=== PATIENT | female | born 1955 | race Caucasian/White ===

== ENCOUNTER 2020-01-25 16:39 | Outpatient (CLI) | payer BC, SELFPAY ==
--- NOTE | ~2020-01-25 | MM_ITS ---
EXAMINATION: MM screening jar[facility] BI w kendra HISTORY: Screening mammogram TECHNIQUE: Craniocaudal and mediolateral oblique 3-D tomosynthesis images were obtained and synthetic 2-D images were generated. CAD analysis was submitted and interpreted. COMPARISON: Comparison to multiple prior studies sequentially, with oldest reviewed study dated 08/30. BREAST PARENCHYMAL COMPOSITION: The breasts are heterogeneously dense, which may obscure small masses . FINDINGS: Nuclear asymmetry superiorly in the right breast on MLO view. The left breast is stable wit hout evidence for malignancy. IMPRESSION: 1. New focal right breast asymmetry. 2. Additional mammographic views and possible breast ultrasound are recommended. BI-RADS Category 0: Incomplete: Needs additional imaging evaluation. Reviewed, dictated and finalized at location A. IMPRESSION: 1. New focal right breast asymmetry. 2. Additional mammographic views and possible breast ultrasound are recommended . BI-RADS Category 0: Incomplete: Needs additional imaging evaluation.
== END 2020-01-25 16:40 | disposition home or self-care (01) ==
PROVIDERS: PCP Family Medicine
DX: Z12.31 Encounter for screening mammogram for malignant neoplasm of breast (principal); R92.8 Other abnormal and inconclusive findings on diagnostic imaging of breast
CPT/HCPCS: 77063; 77067

== ENCOUNTER → 2020-03-13 07:55 | Outpatient (CLI) | payer BC, SELFPAY ==
--- NOTE | ~2020-03-13 | MM_ITS ---
EXAMINATION: MM diagnostic jarred RT w kendra HISTORY: New focal right mammographic asymmetry reported on 01/25/2020 bilateral digital screening mamm ogram examination TECHNIQUE: Additional 3-D tomosynthesis images of the right breast were performed and synthetic 2-D i mages were generated. CAD analysis was submitted and interpreted. COMPARISON: 02/04/2020 bilateral digital screening mammogram FINDINGS: No reproducible mass or architectural distortion or any calcification, skin thickening or r etraction is evident. The area of asymmetry reported in the upper right breast on screening MLO view of 02/04/2020 is not confirmed on these supplemental views. IMPRESSION: 1. No mammographic evidence of malignancy 2. Routine annual mammographic screening follow-up is recommended. BI-RADS Category 1: Negative Reviewed, dictated and finalized at location A.
== END ==
PROVIDERS: PCP Family Medicine; Visit Provider Obstetrics & Gynecology
DX: R92.8 Other abnormal and inconclusive findings on diagnostic imaging of breast (principal)
CPT/HCPCS: 77061; 77065; G0279

== ENCOUNTER 2020-08-29 07:58 | Outpatient (CLI) | payer BC, SELFPAY ==
[2020-08-29 08:22] LABS: Hematocrit 38.1 % (37.0-47.0); Hemoglobin 12.6 g/dL (12.0-15.0); Mean Corpuscular HGB Conc 33.1 g/dl (32-36); Mean Corpuscular Hemoglobin 29.2 pg (26-34); Mean Corpuscular Volume 88.4 fl (80-100); Mean Platelet Volume 9.5 fl (7.4-10.4); Platelet Count Result 301 k/mm3 (150-375); Red Blood Count 4.31 M/mm3 (4.2-5.4); Red Cell Distribution Width 13.4 % (11.5-14.5); White Blood Count 6.7 K/mm3 (4.5-10.0)
[2020-08-29 08:47] LABS: Alanine Aminotransferase 19 U/L (4-35); Albumin Level 4.2 g/dL (3.5-5.1); Alkaline Phosphatase 51 U/L (38-126); Anion Gap 4 mmol/L (8-16); Aspartate Amino Transferase 31 U/L (14-36); Bilirubin,Total 0.4 mg/dL (0.2-1.3); Blood Urea Nitrogen 20 mg/dL (7-17); Calcium 8.9 mg/dL (8.4-10.2); Carbon Dioxide 32 mmol/L (22-30); Chloride 99 mmol/L (98-107); Cholesterol 226 mg/dL (0-200); Estimated Glomerular Filt Rate > 60; Glucose 94 mg/dL (65-105); LDL Cholesterol Direct 60 mg/dL; Potassium 3.9 mmol/L (3.4-5.0); Sodium 135 mmol/L (137-145); Triglycerides 60 mg/dL (<150)
[2020-08-29 08:53] LABS: HDL Direct 141 mg/dL
[2020-09-07 14:31] LABS: SARS-CoV-2 IgG POSITIVE
== END 2020-08-29 07:59 | disposition home or self-care (01) ==
PROVIDERS: PCP Family Medicine; Visit Provider Physician Assistant Medical
DX: E78.2 Mixed hyperlipidemia (principal); N28.9 Disorder of kidney and ureter, unspecified; Z13.220 Encounter for screening for lipoid disorders
CPT/HCPCS: 36415; 80053; 80061; 85027; 86769

== ENCOUNTER → 2021-04-10 12:38 | Outpatient (CLI) | payer BC, SELFPAY ==
--- NOTE | ~2021-04-10 | MM_ITS ---
EXAMINATION: MM screening [facility] BI w kendra HISTORY: Screening mammogram TECHNIQUE: Craniocaudal and mediolateral oblique 3-D tomosynthesis images were obtained and synthetic 2-D images were generated. CAD analysis was submitted and interpreted. COMPARISON: 03/13/2020, 02/04/2020, 06/25/2018 BREAST PARENCHYMAL COMPOSITION: The breasts are heterogeneously dense, which may obscure small masses . FINDINGS: There is no evidence of suspicious mass, calcification, or architectural distortion to sugg est malignancy in either breast. There has been no suspicious interval change. IMPRESSION: 1. No mammographic evidence of malignancy. 2. Recommend routine screening mammography in one year. BI-RADS Category 1: Negative Reviewed, dictated and finalized at location A.
== END ==
PROVIDERS: Visit Provider Obstetrics & Gynecology
DX: Z12.31 Encounter for screening mammogram for malignant neoplasm of breast (principal)
CPT/HCPCS: 77063; 77067

== ENCOUNTER 2021-09-27 11:03 | Outpatient (CLI) | payer MEDICARE, OTHER, SELFPAY ==
[2021-09-27 11:56] LABS: Hematocrit 41.1 % (37.0-47.0); Hemoglobin 13.4 g/dL (12.0-15.0); Mean Corpuscular HGB Conc 32.6 g/dl (32-36); Mean Corpuscular Hemoglobin 29.7 pg (26-34); Mean Corpuscular Volume 91.1 fl (80-100); Mean Platelet Volume 9.5 fl (7.4-10.4); Platelet Count Result 315 k/mm3 (150-375); Red Blood Count 4.51 M/mm3 (4.2-5.4); Red Cell Distribution Width 13.4 % (11.5-14.5); White Blood Count 6.6 K/mm3 (4.5-10.0)
[2021-09-27 12:17] LABS: LDL Cholesterol Direct 51 mg/dL
[2021-09-27 12:21] LABS: Alanine Aminotransferase 31 U/L (4-35); Albumin Level 4.8 g/dL (3.5-5.1); Alkaline Phosphatase 54 U/L (38-126); Anion Gap 6 mmol/L (8-16); Aspartate Amino Transferase 41 U/L (14-36); Bilirubin,Total 0.4 mg/dL (0.2-1.3); Blood Urea Nitrogen 14 mg/dL (7-17); Calcium 9.8 mg/dL (8.4-10.2); Carbon Dioxide 30 mmol/L (22-30); Chloride 101 mmol/L (98-107); Cholesterol 228 mg/dL (0-200); Estimated Glomerular Filt Rate > 60; Glucose 99 mg/dL (65-110); Sodium 137 mmol/L (137-145); Triglycerides 60 mg/dL (<150)
[2021-09-27 12:45] LABS: Vitamin D 25 Hydroxy 87.8 ng/mL
[2021-09-27 13:40] LABS: HDL Direct 153 mg/dL
== END 2021-09-27 11:04 | disposition home or self-care (01) ==
LOC: ANHLAB 11:11
PROVIDERS: PCP Family Medicine; Visit Provider Nurse Practitioner Family
DX: E78.5 Hyperlipidemia, unspecified (principal); R10.9 Unspecified abdominal pain; Z13.29 Encounter for screening for other suspected endocrine disorder; E55.9 Vitamin D deficiency, unspecified
CPT/HCPCS: 36415; 80053; 80061; 82306; 84443; 85027

== ENCOUNTER → 2022-06-28 12:31 | Outpatient (CLI) | payer MEDICARE, OTHER, SELFPAY ==
--- NOTE | ~2022-06-28 | MM_ITS ---
EXAMINATION: MM screening jarred BI w kendra HISTORY: Screening mammogram TECHNIQUE: Craniocaudal and mediolateral oblique 3-D tomosynthesis images were obtained and synthetic 2-D images were generated. CAD analysis was submitted and interpreted. COMPARISON: 04/06/2021 bilateral screening mammogram 03/13/2020 diagnostic right mammogram 01/25/2020, 06/25/2018 bilateral screening mammogram examinations... BREAST PARENCHYMAL COMPOSITION: The breasts are heterogeneously dense, which may obscure small masses . FINDINGS: There is no evidence of suspicious mass, calcification, or architectural distortion to sugg est malignancy in either breast. There has been no suspicious interval change. IMPRESSION: 1. No mammographic evidence of malignancy. 2. Recommend routine screening mammography in one year. BI-RADS Category 1: Negative Reviewed, dictated and finalized at location A. TER SOUSAPHONES
== END ==
PROVIDERS: Visit Provider Obstetrics & Gynecology
DX: Z12.31 Encounter for screening mammogram for malignant neoplasm of breast (principal)
CPT/HCPCS: 77063; 77067

== ENCOUNTER 2022-09-03 08:02 | Emergency (ER) | payer MEDICARE, OTHER, SELFPAY ==
--- NOTE | 2022-09-03 08:09 | ED.WOUNDLAC ---
HPI - Wound/Laceration General Chief Complaint: Wound/Laceration Stated Complaint: laceratiion thumb Time Seen by Provider: 09/03/22 08:08 Source: patient Mode of arrival: ambulatory Limitations: no limitations History of Present Illness HPI narrative: Bita is a 67-year-old female patient presenting to clinic today with complaints of a laceration to her right thumb. She reports she cut it on a piece of glass this morning when washing the dishes at 6:00 a.m.. Tetanus is not up-to-date and patient declines to get a tetanus today. Bleeding is controlled Related Data Allergies Allergy/AdvReac Type Severity Reaction Status Date / Time No Known Allergies Allergy Mild Verified 09/03/22 08:08 Review of Systems Review of Systems: Pertinent positives per HPI. Patient denies any fever, chills, rash, headache, visual changes, dizziness, cough, runny nose, sore throat, shortness of breath, chest pain, palpitations, nausea, vomiting, diarrhea, constipation, abdominal pain, or any urinary issues. 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 There is no relevant family history pertinent to the patient complaint. Exam Narrative: General: Well-developed, well nourished, in no apparent distress Head: Normocephalic, atraumatic. Cardio: Regular rate and rhythm, s1 and s2 normal, no murmur appreciated. Resp: Clear to auscultation bilaterally, no rhonchi, rales, wheezing or rubs. Integumentary: [place], warm, and dry, superficial bleeding skin avulsion to the base of the right dorsal thumb. Area measuring 1.5 x 1 cm Course Course Emergency Course: Portions of this record may have been created with voice recognition software. Level of Care: Express Care Visit Vital Signs Vital signs: Vital Signs Temperature 36.8 C 09/03/22 08:21 Pulse Rate 82 09/03/22 08:21 Respiratory Rate 16 09/03/22 08:21 Blood Pressure 139/77 09/03/22 08:21 Pulse Oximetry 100 09/03/22 08:21 Oxygen Delivery Room Air 09/03/22 08:21 Temperature 36.8 C 09/03/22 08:21 Pulse Rate 82 09/03/22 08:21 Respiratory Rate 16 09/03/22 08:21 Blood Pressure 139/77 09/03/22 08:21 Pulse Oximetry 100 09/03/22 08:21 Oxygen Delivery Room Air 09/03/22 08:21 Vital signs reviewed Procedures Laceration Laceration 1: Date: 09/03/22 Site: hand (Right thumb) Side (If applicable): right Size (cm): 1.5 Description: irregular (Skin avulsion) Depth: simple, single layer Local Anesthetic: lidocaine 1% Amount of anesthesia used (mL): 1 Pre-repair: wound explored and irrigated ====== Skin Level ====== ====== Subcutaneous Layer ====== ====== Muscle Layer ====== ====== Tendon Layer ====== Dressing: Verbal consent obtained for laceration repair. Risk and benefits explained and patient voiced understanding. Area was cleansed with wound cleanser an
[2022-09-03 08:21] VITALS: BP 139/77; PULSE 82; RESP 16; TEMP 36.8; O2SAT 100
== END 2022-09-03 08:40 | disposition home or self-care (01) ==
PROVIDERS: Emergency Provider Nurse Practitioner Family; PCP Family Medicine
DX: S61.001A Unspecified open wound of right thumb without damage to nail, initial encounter (principal); W25.XXXA Contact with sharp glass, initial encounter; Y93.G1 Activity, food preparation and clean up; E78.2 Mixed hyperlipidemia
CPT/HCPCS: 99212; G0463

== ENCOUNTER 2022-09-27 08:49 | Outpatient (CLI) | payer MEDICARE, OTHER, SELFPAY ==
--- NOTE | 2022-09-27 09:18 | ECG_ITS ---
Measurements Intervals [place] Rate: 57 P: 30 TN: 153 QRS: 2 QRSD: 85 T: 49 QT: 442 QTc: 431 Interpretive Statements SINUS BRADYCARDIA EARLY R-WAVE TRANSITION BORDERLINE ECG NO PREVIOUS ECG AVAILABLE FOR COMPARISON Electronically Signed On 09-27-2022 13:13:06 [employer]S OPERATOR [employer] by Rigo Anna M.D.
[2022-09-27 09:33] LABS: Hemoglobin 13.5 g/dL (12.0-15.0); Mean Corpuscular HGB Conc 32.9 g/dl (32-36); Mean Corpuscular Hemoglobin 29.5 pg (26-34); Mean Corpuscular Volume 89.5 fl (80-100); Mean Platelet Volume 9.7 fl (7.4-10.4); Platelet Count Result 322 k/mm3 (150-375); Red Blood Count 4.58 M/mm3 (4.2-5.4); Red Cell Distribution Width 13.1 % (11.5-14.5); White Blood Count 5.7 K/mm3 (4.5-10.0)
[2022-09-27 09:50] LABS: Alanine Aminotransferase 23 U/L (6-35); Albumin Level 4.8 g/dL (3.5-5.1); Alkaline Phosphatase 54 U/L (38-126); Anion Gap 3 mmol/L (8-16); Aspartate Amino Transferase 34 U/L (14-36); Bilirubin,Total 0.6 mg/dL (0.2-1.3); Blood Urea Nitrogen 15 mg/dL (7-17); Calcium 9.3 mg/dL (8.4-10.2); Carbon Dioxide 34 mmol/L (22-30); Chloride 97 mmol/L (98-107); Cholesterol 203 mg/dL (0-200); Estimated Glomerular Filt Rate > 60; Glucose 97 mg/dL (65-110); Potassium 4.1 mmol/L (3.4-5.0); Sodium 134 mmol/L (137-145); Triglycerides 62 mg/dL (<150)
[2022-09-27 09:57] LABS: LDL Cholesterol Direct 42 mg/dL
[2022-09-27 10:11] LABS: HDL Direct 135 mg/dL
== END 2022-09-27 08:50 | disposition home or self-care (01) ==
LOC: ANHLAB 08:51
PROVIDERS: PCP Family Medicine; Visit Provider Nurse Practitioner Family
DX: E78.5 Hyperlipidemia, unspecified (principal); E78.2 Mixed hyperlipidemia; R07.9 Chest pain, unspecified; R00.1 Bradycardia, unspecified
CPT/HCPCS: 36415; 80053; 80061; 84443; 85027; 93005

== ENCOUNTER 2023-03-10 15:11 | Emergency (ER) | payer MEDICARE, OTHER, SELFPAY ==
[2023-03-10 15:21] VITALS: BP 147/71; PULSE 70; RESP 16; TEMP 36.4; O2SAT 100
--- NOTE | 2023-03-10 15:44 | ED.EXTPRO ---
HPI - Extremity Problem General Chief complaint: Extremity Problem,Nontraumatic Stated complaint: Rt Leg Swelling Time Seen by Provider: 03/10/23 15:44 Source: patient, RN notes reviewed and old records reviewed Mode of arrival: ambulatory Limitations: no limitations History of Present Illness HPI Narrative: 67-year-old female presents to the [facility] with right lower leg pain and swelling that has had been twice. Patient states that occurred while sitting at her desk once last week and resolved the next day. Patient states over the with past week and it occurred again and everything but the tenderness to the lower Achilles tendon has subsided. Patient is tender without ecchymosis or erythema to the insertion site of the Achilles tendon right ankle Does have full range of motion Patient reports that wearing heels makes it feel better. Sensation intact in all 5 toes. Positive pedal pulse. Capillary refill under 2 seconds Denies any injury Related Data Allergies Allergy/AdvReac Type Severity Reaction Status Date / Time No Known Allergies Allergy Mild Verified 11/11/22 15:17 Review of Systems Review of Systems: All systems reviewed & are unremarkable except as noted in HPI and below Constitutional: Constitutional: Reports no additional constitutional complaints Eyes: Eyes: Reports no additional eye complaints ENT: Reports system reviewed and no additional complaints, except as documented Cardiovascular: Cardiovascular: Reports no additional cardiovascular complaints, Denies chest pain and Denies dyspnea Respiratory: Respiratory: Reports no additional respiratory complaints, Denies chest congestion, Denies cough and Denies dyspnea Gastrointestinal: Gastrointestinal: Reports no additional gastrointestinal complaints, Denies abdominal pain, Denies nausea and Denies vomiting Musculoskeletal: Musculoskeletal: Reports as per HPI Integumentary/Breasts: Skin/Breast: Reports system reviewed and no additional complaints, except as docu Neurologic: Reports system reviewed and no additional complaints, except as documented Psychiatric: Psychiatric: Reports no additional psychiatric complaints Allergic/Immunologic: Allergic/Immunologic: Reports no additional allergic/immunologic complaints PMFSH Past Medical History Medical History BMI 21.0-21.9, adult Chest pain Elevated liver function tests Head injury due to trauma Hyperlipidemia Low kidney function Mixed hyperlipidemia Family History Family History Mother Hypertension Patient's mother is in good health Father Family history of malignant neoplasm Family history of blood dyscrasia Patient's father is Sibling Patient's sister is in good health Patient's brother is in good health Other Diabetes mellitus Social History Social History Smoking status: Never smoker Second hand tobacco smoke exposure: No Alcohol intake: current Substance use: never Substance use type: does not use Lack of Transportation: YES Lack of Food: Never True Current Housing: I Have Housing Concerned About Future Housing: No Difficulty Paying Gas/Electric Bills: No Difficulty Paying for Meds: No Currently Unemployed: No Education: High School Diploma/GED Difficulty w/ Childcare or Family Care: No Living arrangements: with family Occupation/Education: occupation 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 There is no relevant family history pertinent to the patient complaint. Exam Const: General: cooperative, healthy appearing, comfortable, no acute distress,
== END 2023-03-10 16:08 | disposition home or self-care (01) ==
PROVIDERS: Emergency Provider Nurse Practitioner; PCP Family Medicine
DX: M76.61 Achilles tendinitis, right leg (principal); E78.2 Mixed hyperlipidemia
CPT/HCPCS: 99213; G0463

== ENCOUNTER 2023-10-28 08:00 | Outpatient (CLI) | payer MEDICARE, OTHER, SELFPAY ==
[2023-10-28 08:42] LABS: Basophils Absolute Auto 0.1 K/mm3 (0.0-0.1); Basophils Percent Auto 1.1 % (0.2-1.2); Eosinophils Absolute Auto 0.5 K/mm3 (0-0.3); Eosinophils Percent Auto 7.1 % (0-4.4); Hematocrit 39.1 % (37.0-47.0); Hemoglobin 12.7 g/dL (12.0-15.0); Immature Granulocyte Absolute 0.01 K/mm3 (0.00-0.031); Immature Granulocyte Percent A 0.2 % (0-0.5); Lymphocytes Percent Auto 39.4 % (18.3-44.2); Mean Corpuscular HGB Conc 32.5 g/dl (32-36); Mean Corpuscular Hemoglobin 29.3 pg (26-34); Mean Corpuscular Volume 90.1 fl (80-100); Monocytes Absolute Auto 0.7 K/mm3 (0.1-0.6); Monocytes Percent Auto 10.2 % (2.6-8.5); Neutrophils Absolute Auto 2.8 K/mm3 (1.3-6.7); Platelet Count Result 307 k/mm3 (150-375); Red Blood Count 4.34 M/mm3 (4.2-5.4); Red Cell Distribution Width 13.6 % (11.5-14.5); White Blood Count 6.6 K/mm3 (4.5-10.0)
[2023-10-28 09:06] LABS: Alanine Aminotransferase 23 U/L (6-35); Albumin Level 4.4 g/dL (3.5-5.1); Alkaline Phosphatase 53 U/L (38-126); Anion Gap 2 mmol/L (8-16); Aspartate Amino Transferase 32 U/L (14-36); Bilirubin,Total 0.6 mg/dL (0.2-1.3); Blood Urea Nitrogen 21 mg/dL (7-17); Calcium 9.2 mg/dL (8.4-10.2); Carbon Dioxide 31 mmol/L (22-30); Chloride 100 mmol/L (98-107); Cholesterol 197 mg/dL (0-200); Estimated Glomerular Filt Rate > 60; Glucose 88 mg/dL (65-110); Potassium 3.6 mmol/L (3.4-5.0); Sodium 133 mmol/L (137-145); Triglycerides 50 mg/dL (<150)
[2023-10-28 09:14] LABS: LDL Cholesterol Direct 60 mg/dL
[2023-10-28 09:26] LABS: HDL Direct 144 mg/dL
== END 2023-10-28 08:01 | disposition home or self-care (01) ==
PROVIDERS: PCP Family Medicine; Visit Provider Physician Assistant Medical
DX: E78.5 Hyperlipidemia, unspecified (principal); N28.9 Disorder of kidney and ureter, unspecified; R94.5 Abnormal results of liver function studies
CPT/HCPCS: 36415; 80053; 80061; 85025

== ENCOUNTER 2024-03-05 09:27 | Emergency (ER) | payer MEDICARE, OTHER, SELFPAY ==
[2024-03-05] VITALS (16 sets, daily range): BP systolic 132–163; BP diastolic 75–89; PULSE 63–89; RESP 12–18; TEMP 36.6; O2SAT 98–100
--- NOTE | ~2024-03-05 | XR_ITS ---
Clinical Indication: Hypertension PA and lateral views of the chest: Comparison: 03/13/2010 Findings: The lungs are clear, without evidence of focal consolidation or pleural effusion. Cardiome diastinal silhouette is within normal limits. Bones and soft tissues are unremarkable. Impression: Normal chest. Reviewed, dictated and finalized at location . Impression: Normal chest.
--- NOTE | 2024-03-05 09:35 | ECG_ITS ---
Test Date: 2024-03-05 13:15:00 Measurements Intervals [place] Rate: 67 P: 15 NH: 140 QRS: -12 QRSD: 86 T: 35 QT: 415 QTc: 438 Interpretive Statements SINUS RHYTHM POSSIBLE RIGHT VENTRICULAR CONDUCTION DELAY BASELINE ARTIFACT- II, III, AVR, AVF BORDERLINE ECG No previous ECG available for comparison Electronically Signed On 03-05-2024 13:17:58 CDT by Holger Neumann D.O.
[2024-03-05 10:17] LABS: Basophils Absolute Auto 0.1 K/mm3 (0.0-0.1); Basophils Percent Auto 0.7 % (0.2-1.2); Eosinophils Absolute Auto 0.1 K/mm3 (0-0.3); Eosinophils Percent Auto 1.2 % (0-4.4); Hematocrit 41.9 % (37.0-47.0); Hemoglobin 13.7 g/dL (12.0-15.0); Immature Granulocyte Absolute 0.02 K/mm3 (0.00-0.031); Immature Granulocyte Percent A 0.3 % (0-0.5); Lymphocytes Absolute Auto 1.94 K/mm3 (0.9-3.2); Lymphocytes Percent Auto 28.4 % (18.3-44.2); Mean Corpuscular HGB Conc 32.7 g/dl (32-36); Mean Corpuscular Volume 88.6 fl (80-100); Mean Platelet Volume 9.6 fl (7.4-10.4); Monocytes Absolute Auto 0.6 K/mm3 (0.1-0.6); Monocytes Percent Auto 8.9 % (2.6-8.5); Neutrophils Absolute Auto 4.1 K/mm3 (1.3-6.7); Neutrophils Percent Auto 60.5 % (45.5-73.1); Platelet Count Result 336 k/mm3 (150-375); Red Blood Count 4.73 M/mm3 (4.2-5.4); Red Cell Distribution Width 13.3 % (11.5-14.5); White Blood Count 6.8 K/mm3 (4.5-10.0)
[2024-03-05 10:28] LABS: Alanine Aminotransferase 22 U/L (6-35); Albumin Level 4.8 g/dL (3.5-5.1); Alkaline Phosphatase 60 U/L (38-126); Anion Gap 9 mmol/L (4-12); Aspartate Amino Transferase 34 U/L (14-36); Bilirubin,Total 0.5 mg/dL (0.2-1.3); Blood Urea Nitrogen 15 mg/dL (7-17); Calcium 9.4 mg/dL (8.4-10.2); Carbon Dioxide 29 mmol/L (22-30); Chloride 97 mmol/L (98-107); Estimated CRCL calculation 58 ml/min; Estimated Glomerular Filt Rate > 60; Glucose 109 mg/dL (65-110); Potassium 3.9 mmol/L (3.4-5.0); Sodium 135 mmol/L (137-145)
--- NOTE | 2024-03-05 12:22 | ED.GENADULT ---
HPI - General Adult General Chief complaint: Dizziness Stated complaint: HTN, headache, dizziness Time Seen by Provider: 03/05/24 11:57 History of Present Illness HPI narrative: 68-year-old female presents to the emergency department for evaluation for multiple complaints including a short episode of chest pain last night while lying in bed, some arm tingling yesterday and some headache today. Patient does report history of anxiety as well. Patient presented to the emergency department for evaluation for cardiac rule out. Related Data Allergies Allergy/AdvReac Type Severity Reaction Status Date / Time No Known Allergies Allergy Mild Verified 02/18/24 07:38 Review of Systems Review of Systems: All systems reviewed & are unremarkable except as noted in HPI and below PMFSH Past Medical History Medical History BMI 21.0-21.9, adult Chest pain Elevated liver function tests Head injury due to trauma Hyperlipidemia Low kidney function Mixed hyperlipidemia Family History Family History Mother Hypertension Patient's mother is in good health Father Family history of malignant neoplasm Family history of blood dyscrasia Patient's father is Sibling Patient's sister is in good health Patient's brother is in good health Other Diabetes mellitus Social History Social History Smoking status: Never smoker Second hand tobacco smoke exposure: No Alcohol intake: current Drinks per week: 3 Alcohol use details: social Substance use: never Substance use type: does not use Do You Feel Safe in your Home?: Yes Lack of Transportation: YES Lack of Food: Never True Current Housing: I Have Housing Concerned About Future Housing: No Difficulty Paying Gas/Electric Bills: No Difficulty Paying for Meds: No Currently Unemployed: No Education: High School Diploma/GED Difficulty w/ Childcare or Family Care: No Living arrangements: with family Additional living arrangements comments: Occupation/Education: occupation 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 HEAD: normocephalic, atraumatic. EYES: PERRLA/EOMI, conjunctivae clear. NOSE: Normal no drainage EARS:TMS clear with good light reflex. THROAT: Pharynx clear, no exudate. NECK: Supple. No adenopathy, no masses. RESPIRATORY: Airway patent, respirations nonlabored. Clear to auscultation bilaterally, no rales, rhonchi, wheezing. CARDIOVASCULAR: Regular rate and rhythm without murmurs rubs or gallops. ABDOMINAL: Soft, nontender, nondistended, normal bowel sounds MUSCULOSKELETAL: Moves all extremities. Strength/ROM intact, No edema, No calf tenderness. NEURO: Alert. Cranial nerves II through XII intact. Grossly intact SKIN: Warm, dry. Normal Color Course Vital Signs Vital signs: Vital Signs Temperature 97.8 F 03/05/24 09:42 Pulse Rate 77 03/05/24 09:42 Respiratory Rate 13 03/05/24 09:42 Blood Pressure 146/77 H 03/05/24 09:42 Pulse Oximetry 100 03/05/24 09:42 Oxygen Delivery Room Air 03/05/24 09:42 Temperature 97.8 F 03/05/24 09:42 Pulse Rate 85 03/05/24 12:45 Respiratory Rate 17 03/05/24 12:45 Blood Pressure 163/89 H 03/05/24 12:38 Pulse Oximetry 100 03/05/24 12:45 Oxygen Delivery Room Air 03/05/24 09:42 Medical Decision Making MDM Narrative Medical decision making narrative: 68-year-old female presents to the emergency department for evaluation for some left arm tingling yesterday, some chest pain yesterday and some increased anxiety and intermittent headache today. Brent
[2024-03-05 13:24] LABS: D Dimer < 0.27 ug/mL (<0.48)
[2024-03-05 13:32] LABS: Troponin I < 0.012 ng/mL (0.000-0.034)
== END 2024-03-05 15:16 | disposition home or self-care (01) ==
PROVIDERS: Student in an Organized Health Care Education/Training Program; Emergency Provider Emergency Medicine; PCP Family Medicine
DX: R07.9 Chest pain, unspecified (principal); R20.2 Paresthesia of skin; E78.2 Mixed hyperlipidemia
CPT/HCPCS: 36415; 71046; 80053; 84484; 85025; 85380; 93005; 99284

== ENCOUNTER 2024-04-28 12:33 | Outpatient (CLI) | payer MEDICARE, OTHER, SELFPAY ==
--- NOTE | ~2024-04-28 | MM_ITS ---
EXAMINATION: MM screening jarred BI w kendra HISTORY: Screening mammogram TECHNIQUE: Craniocaudal and mediolateral oblique 3-D tomosynthesis images were obtained and synthetic 2-D images were generated. CAD analysis was submitted and interpreted. COMPARISON: 08/28/2021, 04/10/2021, 03/13/2020 BREAST PARENCHYMAL COMPOSITION:Dense: The breasts are heterogeneously dense, which may obscure small masses. FINDINGS: No suspicious mass, calcification, or architectural distortion are identified in either sid ast to suggest malignancy. There has been no suspicious interval change. IMPRESSION: No mammographic evidence of malignancy. Recommend routine screening mammography in one year. BI-RADS Category 1: Negative Reviewed, dictated and finalized at location .
== END 2024-04-28 12:34 | disposition home or self-care (01) ==
LOC: MICIMG 12:34
PROVIDERS: PCP Family Medicine; Visit Provider Obstetrics & Gynecology
DX: Z12.31 Encounter for screening mammogram for malignant neoplasm of breast (principal)
CPT/HCPCS: 77063; 77067

== ENCOUNTER 2024-05-07 08:40 | Outpatient (CLI) | payer MEDICARE, OTHER, SELFPAY | END 2024-05-07 08:41 | disposition home or self-care (01) | LOC: ANHAUDIO 08:41 | PROVIDERS: PCP Family Medicine; Visit Provider Otolaryngology | DX: H90.6 Mixed conductive and sensorineural hearing loss, bilateral (principal) | CPT/HCPCS: 92557; 92567 ==

== ENCOUNTER 2024-06-17 07:55 | Outpatient (CLI) | payer MEDICARE, OTHER, SELFPAY ==
--- NOTE | ~2024-06-17 | MR_ITS ---
EXAMINATION: MR brain IAC wo/w con DATE: 06/17/2024 08:54 INDICATION: Dizziness and giddiness. TECHNIQUE: Magnetic resonance imaging (MRI) of the brain, brainstem, and internal auditory canals was performed without and with 11 mL MultiHance intravenous contrast. COMPARISON: None. FINDINGS: There are scattered areas of nonspecific increased T2-weighted signal intensity in the cere bral white matter, which is within normal limits for the patient's age. There is no intracranial hemo rrhage, acute infarction, or abnormal intracranial mass lesion. The ventricles are normal in size. Th ere is mild mucosal thickening in the ethmoid sinuses. There are likely changes of ocular lens replac ement surgeries. The internal auditory canals and inner ears and tympanic cavities are normal. The ma stoid air cells are normal. IMPRESSION: 1. Normal aging brain. Reviewed, dictated and finalized at location [] IMPRESSION: 1. Normal aging brain.
== END 2024-06-17 07:56 | disposition home or self-care (01) ==
PROVIDERS: PCP Family Medicine; Visit Provider Nurse Practitioner Family
DX: R42 Dizziness and giddiness (principal)
CPT/HCPCS: 70553; A9577

== ENCOUNTER 2024-12-17 07:16 | Outpatient (CLI) | payer MEDICARE, OTHER, SELFPAY ==
--- OUTSIDE RECORDS SUMMARY | 2024-12-17 07:19 | XMS_ITS | Referral Summary ---
Author Organization [facility] [address] [place] [address] Care Team Providers Care Laundry Assistant Name Role Phone Franck Jeffers MD Primary Care Provider + [phone] Allergies No known active allergies Medications rosuvastatin (CRESTOR) 20 mg tablet Take 1 tablet (20 mg total) by mouth daily 1 Active estradioL (ESTRACE) 0.01 % (0.1 mg/gram) vaginal cream Active meclizine (ANTIVERT) 12.5 mg tablet TAKE 1 TABLET ORALLY THREE TIMES A DAY NEEDED FOR DIZZINESS 4 Active Active Problems Problem Noted Date Diagnosed Date Mixed hyperlipidemia 08/30/2024 Chest pain 08/30/2024 Social History Tobacco Use Types Packs/Day Years Used Date Smoking Tobacco: Never Cigarettes Smokeless Tobacco: Never Tobacco Cessation:Counseling Given: Not Answered Alcohol Use Standard Drinks/Week Comments Yes 0 (1 standard drink = 0.6 oz pur e alcohol) Humiliation, Afraid, Rape, and Kick questionnair e Answer Date Recorded Within the last year, have y ou been afraid of your partner or ex-partner? No 09/12/2020 Within the last year, have y ou been humiliated or emotionally abused in other ways by your partner or ex-partner? No Within the last year, have y ou been kicked, hit, slapped, or otherwise physically hurt by your partner or ex-partner? No 09/12/2020 Within the last year, have y ou been raped or forced to have any kind of sexual activity by your partner or ex-partner? No 09/12/2020 Comments No Sex and Gender Information Value Date Recorded Sex Assigned at Not on file Legal Sex Female 3:59 PM RECEIVING CHECKER Gender Identity Female 09/12/2020 10:18 AM RECEIVING CHECKER Sexual Orientation Not on file Last Filed Vital Signs Vital Sign Reading Time Taken Comments Blood Pressure 122/80 08/30/2024 1:50 PM RECEIVING CHECKER Pulse 71 08/30/2024 1:50 PM RECEIVING CHECKER Temperature 36.2 C (97.1 F) 09/12/2020 12:51 PM RECEIVING CHECKER Respiratory Rate - - Oxygen Saturation 99% 08/30/2024 1:50 PM RECEIVING CHECKER Inhaled Oxygen Concentration - - Weight 58.6 kg (129 lb 3.2 oz) 08/30/2024 1:50 P M RECEIVING CHECKER Height 160 cm (5' 3 ) 08/30/2024 1:50 PM RECEIVING CHECKER Body Mass Index 22.89 08/30/2024 1:50 PM RECEIVING CHECKER Plan of Treatment Not on file Insurance MEDICARE [employer] [facility] [employer] [facility] Care Teams Laundry Assistant Relationship Specialty Start Date End Date Franck Jeffers MD PCP - General 08/31/13
--- OUTSIDE RECORDS SUMMARY | 2024-12-17 07:19 | XMS_ITS | Clinical Summary ---
Author Organization [facility] Address [facility] [place] [address] Care Team Providers Care Manager Of Distribution Name Role Phone Unavailable Primary Care Provider Unavailabl e Social History Tobacco Use Types Packs/Day Years Used Date Smoking Tobacco: Never Assessed Comments Unknown Sex and Gender Information Value Date Recorded Sex Assigned at Not on file Legal Sex Female 4:32 PM CDT Gender Identity Not on file Sexual Orientation Not on file Plan of Treatment Health Maintenance Due Date Last Done Comments Colorectal Cancer Screening Colonoscopy (10 Years) 1956 Hepatitis C 1974 DTaP, Tdap and Td Vaccines ( 1 - Tdap) 1975 Mammogram Screening 1996 Pneumococcal Vaccine: 50+ Ye ars (1 of 1 - PCV) 2006 Zoster Vaccines (1 of 2) 2006 Dexa Scan (General) 2021 COVID-19 Vaccine ( - 2023-2 5 season) 2024 RSV Immunization or 60+ Years (1 - 1-dose 75+ series) 2031 Meningococcal B Vaccine Aged Out No l onger eligible based on patient's age to complete this topic Meningococcal Vaccine Aged Out No phyllis emilee eligible based on patient's age to complete this topic RSV Immunizations Under 20 Months Aged Out No longer eligible based on patient's age to complete this topic
--- OUTSIDE RECORDS SUMMARY | 2024-12-17 07:19 | XMS_ITS | Clinical Summary ---
Author Organization [facility] [address] Address [address] [place] [address] Care Team Providers Care Driver'S License Examiner Name Role Phone Franck Jeffers MD Primary Care Provider + [phone] Allergies No known active allergies Medications rosuvastatin (CRESTOR) 20 mg tablet Take 1 tablet (20 mg total) by mouth daily 1 Active estradioL (ESTRACE) 0.01 % (0.1 mg/gram) vaginal cream Active meclizine (ANTIVERT) 12.5 mg tablet TAKE 1 TABLET ORALLY THREE TIMES A DAY NEEDED FOR DIZZINESS 4 Active Active Problems Problem Noted Date Diagnosed Date Mixed hyperlipidemia 08/30/2024 Chest pain 08/30/2024 Surgical History Surgery Date Site/Laterality Comments VAGINAL DELIVERY X 2 CATARACT EXTRACTION Medical History Medical History Date Comments Chest pain Hyperlipidemia Low kidney function Family History Medical History Relation Name Comments Cancer Father Henok Hypertension Father Henok Hypertension; Leukemia Father Henok Heart attack Maternal Grandfather Aldair Myocard ial Infarction; Cause of : Myocardial Infarction COPD Mother Dulce Other Mother Dulce A-Fib; Stroke Mother Dulce Breast cancer Neg Hx Colon cancer Neg Hx Ovarian cancer Neg Hx Thrombophilia Neg Hx Uterine cancer Neg Hx Relation Name Status Comments Father Henok Alive Maternal Grandfather Aldair Mother Dulce Alive Social History Tobacco Use Types Packs/Day Years [...] on file Legal Sex Female 3:59 PM PENS AND PENCILS DIPPER Gender Identity Female 09/12/2020 10:18 AM PENS AND PENCILS DIPPER Sexual Orientation Not on file Obstetrics History Para Term AB IAB SAB Ectopic Multiple Livin g Live Births 2 2 Date Outcome GA Total Labor Labor/2nd/3rd Weight Sex Type Anes PTL Navya A1 A5 Name Clin 1978 Para Vag-Spo nt 1981 Para Vag-Spo nt Last Filed Vital Signs Vital Sign Reading Time Taken Comments Blood Pressure 122/80 08/30/2024 1:50 PM PENS AND PENCILS DIPPER Pulse 71 08/30/2024 1:50 PM PENS AND PENCILS DIPPER Temperature 36.2 C (97.1 F) 09/12/2020 12:51 PM PENS AND PENCILS DIPPER Respiratory Rate - - Oxygen Saturation 99% 08/30/2024 1:50 PM PENS AND PENCILS DIPPER Inhaled Oxygen Concentration - - Weight 58.6 kg (129 lb 3.2 oz) 08/30/2024 1:50 P M PENS AND PENCILS DIPPER Height 160 cm (5' 3 ) 08/30/2024 1:50 PM PENS AND PENCILS DIPPER Body Mass Index 22.89 08/30/2024 1:50 PM PENS AND PENCILS DIPPER Plan of Treatment Health Maintenance Due Date Last Done Comments Breast Cancer Screening-Mammogram 1955 Colon Cancer Screening-Colonoscopy 1955 Depression Screening 1956 Fall Risk Assessment 1956 Hepatitis C Screening 1956 Osteoporosis Screening-Bone Density Scan 1956 DTaP/Tdap/Td Vaccine (1 - Tdap) 1967 Hepatitis B Screening 1974 Pneumococcal vaccine 65+ (1 of 1 - PCV) 2006 Zoster Vaccine (1 of 2) 2006 Well Visit 65+ 12/13/2022 12/13/2021, 08/19, 06/11/2019 Influenza Vaccine (#1) 2024 Insurance MEDICARE [facility] [place] MEDICARE PHYSICIANS [facility] [place] Care Teams Driver'S License Examiner Relationship Specialty Start Date End Date Franck Jeffers MD PCP - General 08/31/13
--- OUTSIDE RECORDS SUMMARY | 2024-12-17 07:19 | XMS_ITS | Encounter Summary ---
Author Organization [facility] Address [address] [facility] [place] [address] Care Team Providers Care Family And Consumer Science Professor Name Role Phone Unavailable Primary Care Provider Unavailabl e Encounter Details Date Type Department Care Team (Late st Contact Info) Description 07/07/2024 Lab Requisition [facility] - DermPath Lab [address] [facility], [facility] [place] [address] Beatrice Bahena MD [address] [facility] 3 [place] [address] Social History Tobacco Use Types Packs/Day Years Used Date Smoking Tobacco: Never Assessed Comments Unknown Sex and Gender Information Value Date Recorded Sex Assigned at Not on file Legal Sex Female 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 Gender Identity Not on file Sexual Orientation Not on file documented as of this encounter Plan of Treatment Not on file documented as of this encounter Procedures Procedure Name Priority Date/Time Associated Diagnosis Comments DERMATOPATHOLOGY Routine 07/07/2024 8:31 AM FARMWORKER DIVERSIFIED CROPS documented in this encounter Results * DERMATOPATHOLOGY (07/07/2024 8:31 AM FARMWORKER DIVERSIFIED CROPS) Case Report Dermatopathology Report Case: [id number] Authorizing Provider: Beatrice Bahena MD Collected: 07/07/2024 08:31 AM Ordering Location: [facility] - Received: 07/08/2024 07:30 AM DermPath Lab Pathologist: Myra Gao MD Specimen: Skin, right chest 1:08 PM FARMWORKER DIVERSIFIED CROPS DERMATOPATHOLOGY LABORATORY Final Diagnosis Specimen A. 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 The specimen consists of a shave biopsy measuring 11x9x1 mm. Jar 0. 1:08 PM [facility] DERMATOPATHOLOGY LABORATORY Microscopic Description Specimen A. SKIN, right chest: The epidermis shows parakeratosis, full thickness disorderly maturation of keratinocytes, mitoses at different levels, and dyskeratotic cells. 1:08 PM [facility] DERMATOPATHOLOGY LABORATORY Disclaimer An external and internal positive and negative controls are appropriate for the histochemical, immunohistochemical and immunofluorescence stain(s) in this case (if any), except where stated explicitly. The performance characteristics of the stain(s) cited in this report were developed and its performance characteristic determined by the Dermatopathology Laboratory at [facility], directed by Dr. Gama Lehman. These tests need not be, and therefore are not, approved by the [place] Food and Drug Administration. The tests are used for clinical purposes. Billing Codes Specimen Charges Stain Charges 81038 1 4 1:08 PM [facility] DERMATOPATHOLOGY LABORATORY Embedded Images 1:08 PM [facility] DERMATOPATHOLOGY LABORATORY Pathology/Cytolo gy TISSUE SPECIMEN FROM SKIN / Unknown 07/07/2024 8:31 AM FARMWORKER DIVERSIFIED CROPS 07/08/2024 7:30 AM FARMWORKER DIVERSIFIED CROPS Beatrice Bahena MD LAB - PATHOLOGY/CYTOLOGY OR DERABLES Final Result DERMATOPATHOLOGY LABORATORY [facility] - Department of Dermatology [address], [address] [place] [address], [facility] [phone] documented in this encounter Visit Diagnoses Not on filedocumented in this encounter
--- OUTSIDE RECORDS SUMMARY | 2024-12-17 07:19 | XMS_ITS | Encounter Summary ---
Author Organization [facility] Address [address] [facility] [place] [address] Care Team Providers Care Program Clinician Name Role Phone Unavailable Primary Care Provider Unavailabl e Encounter Details Date Type Department Care Team (Late st Contact Info) Description 09/02/2024 Lab Requisition [facility] - DermPath Lab [address] [facility], [facility] [place] [address] Jaclyn Avendaño MD [address] [facility] 3 [place] [address] Social History Tobacco Use Types Packs/Day Years Used Date Smoking Tobacco: Never Assessed Comments Unknown Sex and Gender Information Value Date Recorded Sex Assigned at Not on file Legal Sex Female 6:19 AM QA AUTOMATION ENGINEER Gender Identity Not on file Sexual Orientation Not on file documented as of this encounter Plan of Treatment Not on file documented as of this encounter Procedures Procedure Name Priority Date/Time Associated Diagnosis Comments DERMATOPATHOLOGY Routine 09/02/2024 11:2 7 AM QA AUTOMATION ENGINEER documented in this encounter Results * DERMATOPATHOLOGY (09/02/2024 11:27 AM QA AUTOMATION ENGINEER) Case Report Dermatopathology Report Case: [id number] Authorizing Provider: Jaclyn Avendaño MD Collected: 09/02/2024 11:27 AM Ordering Location: [facility] - Received: 09/02/2024 04:24 PM DermPath Lab Pathologist: Ale Perkins MD Specimen: Skin, right chest 4:10 PM QA AUTOMATION ENGINEER DERMATOPATHOLOGY LABORATORY Final Diagnosis Specimen A. 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 The 12 to 6 o'clock margin is inked green. The 6 o'clock to 12 o'clock margin is inked red. The 12 o'clock tip is submitted in cassette 1. The 6 o'clock tip is submitted in cassette 2. The remainder of the ellipse is serially sectioned and submitted in cassettes 3-4. Jar 0. 4:10 PM [facility] DERMATOPATHOLOGY LABORATORY Microscopic Description Specimen A. SKIN, right chest: The epidermis shows parakeratosis, full thickness disorderly maturation of keratinocytes, mitoses at different levels, and dyskeratotic cells. This lesion is not present at the margin of the specimen which is confirmed on Mib-1 stain. There are fibroblasts and collagen bundles oriented parallel to the skin surface with elongated blood vessels, some of which are oriented perpendicular to the skin surface. 4:10 PM [facility] DERMATOPATHOLOGY LABORATORY Disclaimer An external and internal positive and negative controls are appropriate for the histochemical, immunohistochemical and immunofluorescence stain(s) in this case (if any), except where stated explicitly. The performance characteristics of the stain(s) cited in this report were developed and its performance characteristic determined by the Dermatopathology Laboratory at [facility], directed by Dr. Gama Lehman. These tests need not be, and therefore are not, approved by the [place] Food and Drug Administration. The tests are used for clinical purposes. Billing Codes Specimen Charges Stain Charges 43258 1 54440 1 4:10 PM [facility] DERMATOPATHOLOGY LABORATORY Embedded Images 4:10 PM [facility] DERMATOPATHOLOGY LABORATORY Pathology/Cytolo gy TISSUE SPECIMEN FROM SKIN / Unknown 09/02/2024 11:27 AM QA AUTOMATION ENGINEER 09/02/2024 4:24 PM QA AUTOMATION ENGINEER us Jaclyn Avendaño MD LAB - PATHOLOGY/CYTOLOGY ORD ERABLES Final Result DERMATOPATHOLOGY LABORATORY [facility] - Department of Dermatology [facility] [address] [place] [address], [address] [phone] documented in this encounter Visit Diagnoses Not on filedocumented in this encounter
--- OUTSIDE RECORDS SUMMARY | 2024-12-17 07:19 | XMS_ITS | Clinical Summary ---
Author Organization [facility] Address [address] [place] [address] Care Team Providers Care Belt Notcher Name Role Phone Unavailable Primary Care Provider Unavailabl e Source Comments [facility],non-owned Affiliates and Associated Physician Practices is amultiple site organization consisting of ambulatory clinics and hospital sitesin [place], [place], [place]. This disclosure is being madepursuant to the Care Everywhere program and may not contain all information available regarding this patient. 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 Gender Identity Not on file Sexual Orientation Not on file Plan of Treatment Health Maintenance Due Date Last Done Comments BONE DENSITY TESTING 1956 COLOGUARD (AGES 45-75) - COL ON CA SCREENING 1956 COLON MONITORING 1956 COLONOSCOPY - COLON CA SCREENING 1956 CT COLONOGRAPHY - COLON CA SCREENING 1956 Colorectal Cancer Screening 1956 FIT - COLON CA SCREENING 1956 FLEX SIG - COLON CA SCREENING 1956 LIPID TESTING 1956 MAMMOGRAM 1955 MEDICARE AWV 12 MONTHS 1956 HEPATITIS C SCREENING 04/17/1974 DTAP/TDAP/TD VACCINES (1 - Tdap) 1975 PNEUMOCOCCAL VACCINE 50+ (1 of 1 - PCV) 2006 ZOSTER VACCINE (1 of 2) 2006 COVID-19 VACCINE (1 - 2023-2 5 season) 2024 DEPRESSION SCREENING 08/18/2024 INFLUENZA VACCINE (Season Ended) 2025 Respiratory Syncytial Virus (RSV) Vaccine Pt: or over 60 yrs (1 - 1-dose 75+ series) 2031 HEPATITIS B VACCINE Aged Out No longe r eligible based on patient's age to complete this topic HIB VACCINE Aged Out No longer eligi ble based on patient's age to complete this topic HPV VACCINE Aged Out No longer eligi ble based on patient's age to complete this topic MENINGOCOCCAL (Group B) VACC INE SHARED DECISION-MAKING Aged Out No longer eligibl e based on patient's age to complete this topic MENINGOCOCCAL GROUPS A/C/Y/W VACCINE Aged Out No longer eligible b ased on patient's age to complete this topic Insurance MEDICARE [employer]YSICIANS [employer]
[2024-12-17 07:53] LABS: Basophils Absolute Auto 0.1 K/mm3 (0.0-0.1); Basophils Percent Auto 0.9 % (0.2-1.2); Eosinophils Absolute Auto 0.2 K/mm3 (0-0.3); Eosinophils Percent Auto 4.1 % (0-4.4); Hematocrit 38.6 % (37.0-47.0); Hemoglobin 12.4 g/dL (12.0-15.0); Immature Granulocyte Absolute 0.02 K/mm3 (0.00-0.031); Immature Granulocyte Percent A 0.4 % (0-0.5); Lymphocytes Absolute Auto 2.02 K/mm3 (0.9-3.2); Lymphocytes Percent Auto 37.9 % (18.3-44.2); Mean Corpuscular HGB Conc 32.1 g/dl (32-36); Mean Corpuscular Hemoglobin 28.9 pg (26-34); Mean Platelet Volume 9.2 fl (7.4-10.4); Monocytes Absolute Auto 0.6 K/mm3 (0.1-0.6); Monocytes Percent Auto 10.5 % (2.6-8.5); Neutrophils Absolute Auto 2.5 K/mm3 (1.3-6.7); Neutrophils Percent Auto 46.2 % (45.5-73.1); Platelet Count Result 309 k/mm3 (150-375); Red Blood Count 4.29 M/mm3 (4.2-5.4); Red Cell Distribution Width 13.5 % (11.5-14.5); White Blood Count 5.3 K/mm3 (4.5-10.0)
[2024-12-17 08:16] LABS: LDL Cholesterol Direct 49 mg/dL
[2024-12-17 08:23] LABS: Alanine Aminotransferase 22 U/L (6-35); Albumin Level 4.2 g/dL (3.5-5.1); Alkaline Phosphatase 54 U/L (38-126); Anion Gap 5 mmol/L (4-12); Aspartate Amino Transferase 31 U/L (14-36); Bilirubin,Total 0.5 mg/dL (0.2-1.3); Blood Urea Nitrogen 20 mg/dL (7-17); Calcium 8.9 mg/dL (8.4-10.2); Carbon Dioxide 30 mmol/L (22-30); Chloride 98 mmol/L (98-107); Cholesterol 215 mg/dL (0-200); Estimated Glomerular Filt Rate > 60; Glucose 91 mg/dL (65-110); Potassium 3.9 mmol/L (3.4-5.0); Sodium 133 mmol/L (137-145); Triglycerides 59 mg/dL (<150)
[2024-12-17 08:31] LABS: HDL Direct 137 mg/dL
== END 2024-12-17 07:17 | disposition home or self-care (01) ==
PROVIDERS: PCP Family Medicine; Visit Provider Physician Assistant Medical
DX: E78.5 Hyperlipidemia, unspecified (principal); R00.1 Bradycardia, unspecified; E87.1 Hypo-osmolality and hyponatremia
CPT/HCPCS: 36415; 80053; 80061; 85025

== ENCOUNTER 2025-05-02 08:04 | Outpatient (CLI) | payer MEDICARE, OTHER, SELFPAY ==
--- NOTE | ~2025-05-02 | MM_ITS ---
EXAMINATION: MM screening jarred BI w kendra HISTORY: Screening TECHNIQUE: Craniocaudal and mediolateral oblique 3-D tomosynthesis images were obtained and synthetic 2-D images were generated. CAD analysis was submitted and interpreted. COMPARISON: 06/28/2022 BREAST PARENCHYMAL COMPOSITION: There are scattered areas of fibroglandular density. FINDINGS: There is no evidence of suspicious mass, calcification, or architectural distortion to suggest malignancy. There has been no suspicious interval change. IMPRESSION: 1. No mammographic evidence of malignancy. Recommend routine screening mammography in one year. BI-RADS Category 2: Benign finding(s) Reviewed, dictated and finalized at location Q. IMPRESSION: 1. No mammographic evidence of malignancy. Recommend routine screening mammogra phy in one year. BI-RADS Category 2: Benign finding(s)
--- OUTSIDE RECORDS SUMMARY | 2025-05-02 08:30 | XMS_ITS | Clinical Summary ---
Author Organization [facility] [address] Address [address] [place] [address] Care Team Providers Care Ammunition Officer Name Role Phone Franck Jeffers MD Primary Care Provider + [phone] Allergies No known active allergies Medications rosuvastatin [...] on file Legal Sex Female 3:59 PM RADARMAN Gender Identity Female 09/12/2020 10:18 AM RADARMAN Sexual Orientation Not on file Obstetrics History Para Term AB IAB SAB Ectopic Multiple Livin g Live Births 2 2 Date Outcome GA Total Labor Labor/2nd/3rd Weight Sex Type Anes PTL Navya A1 A5 Name Clin 1978 Para Vag-Spo nt 1981 Para Vag-Spo nt Last Filed Vital Signs Vital Sign Reading Time Taken Comments Blood Pressure 122/80 08/30/2024 1:50 PM RADARMAN Pulse 71 08/30/2024 1:50 PM RADARMAN Temperature 36.2 C (97.1 F) 09/12/2020 12:51 PM RADARMAN Respiratory Rate - - Oxygen Saturation 99% 08/30/2024 1:50 PM RADARMAN Inhaled Oxygen Concentration - - Weight 58.6 kg (129 lb 3.2 oz) 08/30/2024 1:50 P M RADARMAN Height 160 cm (5' 3) 08/30/2024 1:50 PM RADARMAN Body Mass Index 22.89 08/30/2024 1:50 PM RADARMAN Plan of Treatment Health Maintenance Due Date [...] 12/13/2022 12/13/2021, 08/19, 06/11/2019 Influenza Vaccine (#1) 2025 Insurance MEDICARE [facility] [place] MED[place]ARE [facility]ICIANS [facility] [place] Care Teams Ammunition Officer Relationship Specialty Start Date End Date Franck Jeffers MD PCP - General 08/31/13
--- OUTSIDE RECORDS SUMMARY | 2025-05-02 08:30 | XMS_ITS | Encounter Summary ---
Author Organization [facility] Address [address] [facility] [place] [address] Care Team Providers Care Printing Bindery Assistant Name Role Phone Unavailable Primary Care Provider Unavailabl e Encounter Details Date Type Department Care Team (Late st Contact Info) Description 07/07/2024 Lab Requisition [facility] - DermPath Lab [address] [facility], [facility] [place] [place] [address] Beatrice Bahena MD [address] [facility] [address] [place] [address] Social History Tobacco Use Types Packs/Day Years Used Date Smoking Tobacco: Never Assessed Comments Unknown Sex and Gender Information Value Date Recorded Sex Assigned at Not on file Legal Sex Female 6:19 AM EYELET OPERATOR Gender Identity Not on file Sexual Orientation Not on file documented as of this encounter Plan of Treatment Not on file documented as of this encounter Procedures Procedure Name Priority Date/Time Associated Diagnosis Comments DERMATOPATHOLOGY Routine 07/07/2024 8:31 AM EYELET OPERATOR documented in this encounter Results * DERMATOPATHOLOGY (07/07/2024 8:31 AM EYELET OPERATOR) Case Report Dermatopathology Report Case: [id number] Authorizing Provider: Beatrice Bahena MD Collected: 07/07/2024 08:31 AM Ordering Location: [facility] - Received: 07/08/2024 07:30 AM DermPath Lab Pathologist: Myra Gao MD Specimen: Skin, right chest 4 1:08 PM EYELET OPERATOR DERMATOPATHOLOGY LABORATORY Final Diagnosis Specimen A. SKIN, right chest: SQUAMOUS CELL CARCINOMA IN SITU (OSBORN'S DISEASE) (D04.5) 4 1:08 PM EYELET OPERATOR DERMATOPATHOLOGY LABORATORY at [address] EYELET OPERATOR Clinical History R/O BCC, Irritated, Non-Healing 4 1:08 PM [facility] DERMATOPATHOLOGY LABORATORY Gross Description Specimen A: Received is one formalin filled container labeled with the patient's name and designated right chest. The specimen consists of a shave biopsy measuring 11x9x1 mm. Jar 0. 1:08 PM [facility] DERMATOPATHOLOGY LABORATORY Microscopic Description Specimen A. SKIN, right chest: The epidermis shows parakeratosis, full thickness disorderly maturation of keratinocytes, mitoses at different levels, and dyskeratotic cells. 1:08 PM [facility] DERMATOPATHOLOGY LABORATORY Disclaimer An external and internal positive and negative controls are appropriate for the histochemical, immunohistochemical and immunofluorescence stain(s) in this case (if any), except where stated explicitly. The performance characteristics of the stain(s) cited in this report were developed and its performance characteristic determined by the Dermatopathology Laboratory at [facility], directed by Dr. Gama Lehman. These tests need not be, and therefore are not, approved by the [place] Food and Drug Administration. The tests are used for clinical purposes. Billing Codes Specimen Charges Stain Charges 10747 1 4 1:08 PM [facility] DERMATOPATHOLOGY LABORATORY Embedded Images 4 1:08 PM [facility] DERMATOPATHOLOGY LABORATORY Pathology/Cytolo gy TISSUE SPECIMEN FROM SKIN / Unknown 07/07/2024 8:31 AM EYELET OPERATOR 07/08/2024 7:30 AM EYELET OPERATOR Beatrice Bahena MD LAB - PATHOLOGY/CYTOLOGY OR DERABLES Final Result DERMATOPATHOLOGY LABORATORY [facility] - Department of Dermatology [facility] [address] [place] [address], [address]rd [place] [address], [facility] [phone] documented in this encounter Visit Diagnoses Not on filedocumented in this encounter
--- OUTSIDE RECORDS SUMMARY | 2025-05-02 08:30 | XMS_ITS | Clinical Summary ---
Author Organization [facility] Address [address] [facility] [place] [address] Care Team Providers Care Dental Assistant Name Role Phone Unavailable Primary Care Provider Unavailabl e Source Comments [facility],non-owned Affiliates and Associated Physician Practices is amultiple site organization consisting of ambulatory clinics and hospital sitesin [place], [place], [place] and [place]. This disclosure is being madepursuant to the Care Everywhere program and may not contain all information available regarding this patient. 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 Gender Identity Not on file Sexual Orientation [...] 2006 ZOSTER VACCINE (1 of 2) 2006 DEPRESSION SCREENING 08/18/2024 COVID-19 VACCINE (2023-2 5 season) 2025 INFLUENZA VACCINE (#1) 2025 Respiratory Syncytial Virus (RSV) Vaccine Pt: [...] on patient's age to complete this topic Procedures Procedure Name Priority Date/Time Associated Diagnosis Comments DERMATOPATHOLOGY Routine 02/15/2025 2:06 PM CDT from Last 3 Months Results * DERMATOPATHOLOGY (02/15/2025 2:06 PM CDT) Case Report Dermatopathology Report Case: [id number] Authorizing Provider: Jaclyn Avendaño MD Collected: 02/15/2025 02:06 PM Ordering Location: [facility] - Received: 02/16/2025 03:31 PM DermPath Lab Pathologist: Ale Perkins MD Specimen: Skin, mid back 2:04 PM CDT DERMATOPATHOLOGY LABORATORY Final Diagnosis Specimen A. SKIN, mid back: BASAL CELL CARCINOMA, SUPERFICIAL MULTIFOCAL (C44.519) 2:04 PM CDT DERMATOPATHOLOGY LABORATORY at 1404 CDT Clinical History Nevus; R/O BCC 2:04 PM CDT DERMATOPATHOLOGY LABORATORY Gross Description Specimen A: Received is one formalin filled container labeled with the patient's name and designated mid back. The specimen consists of a shave biopsy measuring 8x7x2 mm. Jar 0. 2:04 PM CDT DERMATOPATHOLOGY LABORATORY Microscopic Description Specimen A. SKIN, mid back: Attached to the undersurface of the epidermis, there are small aggregates of basaloid cells with a high nuclear to cytoplasmic ratio and peripheral palisading. 5 2:04 PM CDT DERMATOPATHOLOGY LABORATORY Disclaimer An external and internal positive and negative controls are appropriate for the histochemical, immunohistochemical and immunofluorescence stain(s) in this case (if any), except where stated explicitly. The performance characteristics of the stain(s) cited in this report were developed and its performance characteristic determined by the Dermatopathology Laboratory at [facility], directed by Dr. Gama Lehman. These tests need not be, and therefore are not, approved by the [place] Food and Drug Administration. The tests are used for clinical purposes. Billing Codes Specimen Charges Stain Charges 86024 1 5 2:04 PM CDT DERMATOPATHOLOGY LABORATORY Embedded Images 5 2:04 PM CDT DERMATOPATHOLOGY LABORATORY Pathology/Cytolo gy TISSUE SPECIMEN FROM SKIN / Unknown 02/15/2025 2:06 PM CDT 02/16/2025 3:31 PM CDT Jaclyn Avendaño MD LAB - PATHOLOGY/CYTOLOGY ORD ERABLES Final Result DERMATOPATHOLOGY LABORATORY [facility] - Department of Dermatology [facility] [address] [place] [address], [address] [place] [address], [facility] [phone] from Last 3 Months Insurance MEDICARE Member Subscriber Plan / Payer (Ef fective 2021-Present) Name:Bita Ross Member ID:[id number] Relation to Subscriber:Self Name:Bita Ross Subscriber ID:[id number] Payer ID:Not on file Group ID:Not on file Type:Medicare Address: [place] [id number] [employer]
--- OUTSIDE RECORDS SUMMARY | 2025-05-02 08:30 | XMS_ITS | Encounter Summary ---
Author Organization [facility] Address [address] [place] [address] Care Team Providers Care Hot [place]ound [place] Production Supervisor Name Role Phone Unavailable Primary Care Provider Unavailabl e Encounter Details Date Type Department Care Team (Late st Contact Info) Description 09/02/2024 Lab Requisition [facility] - DermPath Lab [address] [facility], [facility] [place] [address] Jcalyn Avendaño MD [address] [facility] [address] [place] [address] Social History Tobacco Use Types Packs/Day Years Used Date Smoking Tobacco: Never Assessed Comments Unknown Sex and Gender Information Value Date Recorded Sex Assigned at Not on file 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 Gender Identity Not on file Sexual Orientation Not on file documented as of this encounter Plan of Treatment Not on file documented as of this encounter Procedures Procedure Name Priority Date/Time Associated Diagnosis Comments DERMATOPATHOLOGY Routine 09/02/2024 11:2 7 AM HEATING AND REFRIGERATION INSPECTOR documented in this encounter Results * DERMATOPATHOLOGY (09/02/2024 11:27 AM HEATING AND REFRIGERATION INSPECTOR) Case Report Dermatopathology Report Case: [id number] Authorizing Provider: Jaclyn Avendaño MD Collected: 09/02/2024 11:27 AM Ordering Location: [facility] Physician [facility] - Received: 09/02/2024 04:24 PM DermPath Lab Pathologist: Ale Perkins MD Specimen: Skin, right chest 4:10 PM HEATING AND REFRIGERATION INSPECTOR DERMATOPATHOLOGY LABORATORY Final Diagnosis Specimen A. 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 Jar 0. 4:10 PM [facility] DERMATOPATHOLOGY LABORATORY Microscopic Description Specimen A. SKIN, [...] perpendicular to the skin surface. 4:10 PM [facility] DERMATOPATHOLOGY LABORATORY Disclaimer An external and internal positive and negative controls are appropriate for the histochemical, immunohistochemical and immunofluorescence stain(s) in this case (if any), except where stated explicitly. The performance characteristics of the stain(s) cited in this report were developed and its performance characteristic determined by the Dermatopathology Laboratory at [facility], directed by Dr. Gama Lehman. These tests need not be, and therefore are not, approved by the [place] Food and Drug Administration. The tests are used for clinical purposes. Billing Codes Specimen Charges Stain Charges 92104 1 80959 1 4:10 PM [facility] DERMATOPATHOLOGY LABORATORY Embedded Images 4:10 PM [facility] DERMATOPATHOLOGY LABORATORY Pathology/Cytolo gy TISSUE SPECIMEN FROM SKIN / Unknown 09/02/2024 11:27 AM HEATING AND REFRIGERATION INSPECTOR 09/02/2024 4:24 PM [facility] Jaclyn Avendaño MD LAB - PATHOLOGY/CYTOLOGY ORD ERABLES Final Result DERMATOPATHOLOGY LABORATORY [facility] - Department of Dermatology [facility] Special[facility] [address] [place] [address], [address] [phone] documented in this encounter Visit Diagnoses Not on filedocumented in this encounter
--- OUTSIDE RECORDS SUMMARY | 2025-05-02 08:31 | XMS_ITS | Encounter Summary ---
Author Organization [facility] Address [address] [facility] [place] [address] Care Team Providers Care Kiln Labourer Name Role Phone Unavailable Primary Care Provider Unavailabl e Encounter Details Date Type Department Care Team (Late st Contact Info) Description 02/15/2025 Lab Requisition [facility] - DermPath Lab [address] [facility], [facility] [place] [address] Jaclyn Avendaño MD [address] [facility] [address] [place] [address] Social History Tobacco Use Types Packs/Day Years Used Date Smoking Tobacco: Never Assessed Comments Unknown Sex and Gender Information Value Date Recorded Sex Assigned at Not on file 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 Gender Identity Not on file Sexual Orientation Not on file documented as of this encounter Plan of Treatment Not on file documented as of this encounter Procedures Procedure Name Priority Date/Time Associated Diagnosis Comments DERMATOPATHOLOGY Routine 02/15/2025 2:06 PM CDT documented in this encounter Results * DERMATOPATHOLOGY (02/15/2025 2:06 PM CDT) Case Report Dermatopathology Report Case: [id number] Authorizing Provider: Jaclyn Avendaño MD Collected: 02/15/2025 02:06 PM Ordering Location: [facility] Physician [facility] - Received: 02/16/2025 03:31 PM DermPath Lab [...] nuclear to cytoplasmic ratio and peripheral palisading. 2:04 PM CDT DERMATOPATHOLOGY LABORATORY Disclaimer An external and internal positive and negative controls are appropriate for the histochemical, immunohistochemical and immunofluorescence stain(s) in this case (if any), except where stated explicitly. The performance characteristics of the stain(s) cited in this report were developed and its performance characteristic determined by the Dermatopathology Laboratory at [facility], directed by Dr. Gama Lehman. These tests need not be, and therefore are not, approved by the [place] Food and Drug Administration. The tests are used for clinical purposes. Billing Codes Specimen Charges Stain Charges 35671 1 2:04 PM CDT DERMATOPATHOLOGY LABORATORY Embedded Images 2:04 PM CDT DERMATOPATHOLOGY LABORATORY Pathology/Cytolo gy TISSUE SPECIMEN FROM SKIN / Unknown 02/15/2025 2:06 PM CDT 02/16/2025 3:31 PM CDT Jaclyn Avendaño MD LAB - PATHOLOGY/CYTOLOGY ORD ERABLES Final Result DERMATOPATHOLOGY LABORATORY [facility] - Department of Dermatology [facility] Medicine [address] [place] [address], [address] [place] [address], [facility] [phone] documented in this encounter Visit Diagnoses Not on filedocumented in this encounter
== END 2025-05-02 08:05 | disposition home or self-care (01) ==
PROVIDERS: PCP Family Medicine; Visit Provider Family Medicine
DX: Z12.31 Encounter for screening mammogram for malignant neoplasm of breast (principal)
CPT/HCPCS: 77063; 77067